=== PATIENT | male | born 1960 | race Two or more races ===

== ENCOUNTER 2022-01-31 14:13 | Emergency (ER) | payer MEDICAID, OTHER ==
[~2022-01-31] VITALS: Ht 170.2 cm; Wt 104.0 kg
[2022-01-31 14:19] VITALS: BP 162/81
[2022-01-31] MEDS ORDERED: TETRACAINE 0.5% OPHTH DROPS 4ML LEFTEYE ONE (16:15)
== END 2022-01-31 17:38 | disposition home or self-care (01) ==
LOC: ER 14:13
DX: H43.392 Other vitreous opacities, left eye (principal); E78.00 Pure hypercholesterolemia, unspecified
CPT/HCPCS: 99284